=== PATIENT | female | born 1990 | race Caucasian/White ===

== ENCOUNTER 2018-05-01 17:28 | Emergency (ER) | payer OTHER, BC ==
[~2018-05-01] VITALS: Ht 160 cm; Wt 98.0 kg
[~2018-05-01 17:28] MED LIST: BC IMPLANT; CYCL-331 PO; HYDR-2155 PO; IBUP800T19 PO
[2018-05-01 17:35] VITALS: BP 147/95
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
== END 2018-05-01 19:42 | disposition home or self-care (01) ==
LOC: ER 17:28
DX: S46.911A Strain of unspecified muscle, fascia and tendon at shoulder and upper arm level, right arm, initial encounter (principal); V87.7XXA Person injured in collision between other specified motor vehicles (traffic), initial encounter; E03.9 Hypothyroidism, unspecified; Y93.89 Activity, other specified; Y92.488 Other paved roadways as the place of occurrence of the external cause; Y99.8 Other external cause status
CPT/HCPCS: 73030; 99283